=== PATIENT | male | born 1995 | race Asian ===

== ENCOUNTER 2022-05-11 22:33 | Emergency (ER) | payer OTHER ==
[~2022-05-11] VITALS: Ht 193 cm; Wt 103.4 kg
[2022-05-11 23:10] LABS: POTASSIUM 3.9 mmol/L (3.6-5.2)
[2022-05-11 23:12] LABS: PLATELET COUNT 252 K/uL (142-355)
[2022-05-11 23:45] VITALS: BP 142/82; TEMP 98.4
== END 2022-05-11 23:45 | disposition home or self-care (01) ==
LOC: ED 22:33
PROVIDERS: Hospitalist
DX: R19.7 Diarrhea, unspecified (principal); R11.2 Nausea with vomiting, unspecified; A08.39 Other viral enteritis
CPT/HCPCS: 36415; 80053; 80320; 81002; 83690; 85027; 96360; 96374; 99284; J2405

== ENCOUNTER 2022-07-12 08:31 | Emergency (ER) | payer OTHER ==
[~2022-07-12] VITALS: Ht 193 cm; Wt 103.4 kg
[2022-07-12 08:37] VITALS: TEMP 98.3
[2022-07-12 09:12] VITALS: BP 126/87
== END 2022-07-12 09:13 | disposition home or self-care (01) ==
LOC: ED 08:31
DX: K08.89 Other specified disorders of teeth and supporting structures (principal)
CPT/HCPCS: 96372; 99282; J1885